=== PATIENT | female | born 1970 | race Caucasian/White ===

== ENCOUNTER → 2019-05-27 | Outpatient (CLI) | payer OTHER ==
--- NOTE | 2019-05-27 09:59 | Diagnostic Imaging Report ---
EXAM: US LIVER DATE: 05/27/2019 8:14 AM INDICATION: Hepatitis C COMPARISON: None FINDINGS: The visualized pancreas appears unremarkable. The liver is normal in size measuring 11.0 cm in length. Hepatic echogenicity is within normal limits. No focal hepatic abnormality is identified. The main portal vein is patent with antegrade flow and diameter of 1.0 cm, within normal limits. The gallbladder is unremarkable. There is no evidence for cholelithiasis, gallbladder wall thickening, or pericholecystic fluid. There is no intra or extra hepatic biliary ductal dilatation. The common bile duct measures 2 mm. Sonographic Oden's sign is negative. The right kidney is normal in size measuring 11.0 cm in length with normal cortical thickness and echogenicity. There is no evidence for solid renal mass, hydronephrosis, or shadowing calculi within the right kidney. The visual as portions the IVC and aorta are within normal limits. There is no ascites visualized within the right upper quadrant. IMPRESSION: Unremarkable right upper quadrant ultrasound examination. Signed by: Dr. Steve Cobb MD on 05/27/2019 9:56 AM
== END ==
LOC: US 08:01
PROVIDERS: ATTEND Internal Medicine Gastroenterology
DX: B19.20 Unspecified viral hepatitis C without hepatic coma (principal)
CPT/HCPCS: 76705